=== PATIENT | male | born 1995 | race Caucasian/White ===

== ENCOUNTER 2018-04-24 07:28 | Outpatient (CLI) | payer BC, OTHER ==
[2018-04-24] MEDS ORDERED: None at this Time (09:02)
== END 2018-04-24 23:59 | disposition home or self-care (01) ==
LOC: STAR 07:28
PROVIDERS: ATTEND Orthopaedic Surgery
DX: Z02.9 Encounter for administrative examinations, unspecified (principal)

== ENCOUNTER 2018-04-28 06:45 | Day surgery (SDC) | payer BC, OTHER ==
[2018-04-24 08:50] VITALS: BP 151/80
[~2018-04-28] VITALS: Ht 175.3 cm; Wt 100.2 kg
[~2018-04-28 06:45] MED LIST: BUPIVACAINE/PF 0.5% ONE; EPINEPHRINE 1 MG/ML, 1ML ONE; LIDOCAINE 1%-EPI 1:100K, 30ML ONE; None at this Time
[2018-04-28 07:19] VITALS: BP 151/80
[2018-04-28] MEDS ORDERED: LACTATED RINGERS 1,000 ML IV SCH (07:23)
[2018-04-28] MEDS ORDERED: MIDAZOLAM 1 MG/ML, 2ML ONE (07:43)
[2018-04-28] MEDS ORDERED: FENTANYL PF 250 MCG/5ML ONE (07:44)
[2018-04-28] MEDS ORDERED: EPHEDRINE 50 MG/ML, 1ML IVPush PRN (08:00)
[2018-04-28] MEDS ORDERED: ONDANSETRON 2MG/ML, 2ML IV PRN (08:00)
[2018-04-28] MEDS ORDERED: OXYcodone 5 MG/5 ML ORAL.SOL UDC PO PRN (08:00)
[2018-04-28] MEDS ORDERED: ALBUTEROL SULFATE 2.5 MG/3 ML NPPB PRN (08:00)
[2018-04-28] MEDS ORDERED: ACETAMINOPHEN 325 MG TABLET PO PRN (08:00)
[2018-04-28] MEDS ORDERED: hydrALAzine 20 MG/ML, 1ML IV PRN (08:00)
[2018-04-28] MEDS ORDERED: METOPROLOL 1 MG/ML, 5ML IV PRN (08:00)
[2018-04-28] MEDS ORDERED: LABETALOL 5MG/ML, 20ML IV PRN (08:00)
[2018-04-28] MEDS ORDERED: PROMETHAZINE 25 MG/ML, 1ML IV PRN (08:00)
[2018-04-28] MEDS ORDERED: HYDROmorphone 2 MG/ML, 1ML IVPush PRN (08:00)
[2018-04-28] MEDS ORDERED: MEPERIDINE/PF 25MG/0.5ML IVPush PRN (08:00)
[2018-04-28] MEDS ORDERED: FENTANYL PF 100 MCG/2ML IV PRN (08:00)
[2018-04-28] MEDS ORDERED: CEFAZOLIN 1,000 MG ONE (08:53)
[2018-04-28] MEDS ORDERED: DEXAMETHASONE 4 MG/ML, 1ML ONE (08:53)
[2018-04-28] MEDS ORDERED: PROPOFOL 10 MG/ML, 20ML ONE (08:53)
[2018-04-28] MEDS ORDERED: ONDANSETRON 2MG/ML, 2ML ONE (08:53)
[2018-04-28] MEDS ORDERED: ACETAMINOPHEN 650 MG/20.3 ML UDC ONE (09:55)
[2018-04-28] MEDS ORDERED: OXYcodone 5 MG/5 ML ORAL.SOL UDC ONE (09:55)
== END 2018-04-28 11:30 | disposition home or self-care (01) ==
LOC: OUT 06:45
PROVIDERS: ATTEND Orthopaedic Surgery
DX: M65.862 Other synovitis and tenosynovitis, left lower leg (principal); M67.52 Plica syndrome, left knee; M23.42 Loose body in knee, left knee
CPT/HCPCS: 29876; 64447; J0171; J0690; J1100; J2250; J2405; J2704; J3010; J3490; J7120